=== PATIENT | female | born 1960 | race Caucasian/White ===

== ENCOUNTER 2020-04-25 07:16 | Observation (INO) | payer OTHER ==
[2020-04-25] MEDS ORDERED: ASPIRIN 81 MG PO STA (07:44)
[2020-04-25] MEDS ORDERED: NITROGLYCERIN OINT 1 INCH/GM PACKET TOPICAL STA (07:44)
[2020-04-25 07:59] LABS: Basophils # (A) 0.1 k/uL (0-0.2); Basophils % (A) 0 %; Eosinophils # (A) 0.2 k/uL (0-0.7); Eosinophils % (A) 1 %; HCT 51.2 % (34.0-46.0); Lymphocytes # (A) 2.6 k/uL (1.0-4.8); Lymphocytes % (A) 17 %; MCH 28.6 pg (25.0-35.0); MCHC 31.3 g/dL (31.0-37.0); MCV 91.4 fL (80.0-100.0); Mean Platelet Volume 7.9; Monocytes # (A) 0.8 k/uL (0-1.0); Monocytes % (A) 5 %; Neutrophils # (A) 11.5 k/uL (1.3-7.7); Neutrophils % (A) 75 %; Platelet Count 420 k/uL (150-450); RDW 12.9 % (11.5-15.5); WBC 15.2 k/uL (3.8-10.6)
--- NOTE | 2020-04-25 08:02 | ED ---
General Adult HPI - General Chief complaint: Chest Pain Stated complaint: chest pain Time Seen by Provider: 04/25/20 07:25 Source: patient, RN notes reviewed, old records reviewed Mode of arrival: ambulatory Limitations: no limitations - History of Present Illness Initial comments: This is a 59-year-old female presents emergency Department complaining of chest pain. Patient states the chest pain started at 2:00 in the morning. Patient states it radiates to her back. Patient states she's had intermittent shortness of breath associated with it. Patient denies any diaphoretic episodes. Patient states she is nauseated. Patient states she's had similar symptoms over the last 2 years on and off but never been worked up for. Patient states she does have high cholesterol but refuses to take her medication. Patient states she smokes. Patient states she has family history of heart disease. Patient denies any fever chills or cough per patient denies any lightheadedness or dizziness. Patient denies abdominal pain patient denies vomiting or diarrhea. Patient denies any Tenderness or leg swelling - Related Data Allergies Allergy/AdvReac Type Severity Reaction Status Date / Time No Known Allergies Allergy Verified 04/25/20 07:25 Review of Systems ROS Statement: Those systems with pertinent positive or pertinent negative responses have been documented in the HPI. ROS Other: All systems not noted in ROS Statement are negative. Past Medical History Past Medical History: Hypertension History of Any Multi-Drug Resistant Organisms: None Reported Past Surgical History: Breast Surgery, Tonsillectomy Additional Past Surgical History / Comment(s): R breast Past Psychological History: No Psychological Hx Reported Smoking Status: Current every day smoker Past Alcohol Use History: None Reported Past Drug Use History: None Reported General Exam - General Exam Comments Initial Comments: GENERAL: Patient is well-developed and well-nourished. Patient is nontoxic and well- hydrated and is in mild distress. ENT: Neck is soft and supple. No significant lymphadenopathy is noted. Oropharynx is clear. Moist mucous membranes. Neck has full range of motion without eliciting any pain. EYES: The sclera were anicteric and conjunctiva were pink and moist. Extraocular movements were intact and pupils were equal round and reactive to light. Eyelids were unremarkable. PULMONARY: Unlabored respirations. Good breath sounds bilaterally. No audible rales rhonchi or wheezing was noted. CARDIOVASCULAR: There is a regular rate and rhythm without any murmurs gallops or rubs. ABDOMEN: Soft and nontender with normal bowel sounds. SKIN: Skin is clear with no lesions or rashes and otherwise unremarkable. NEUROLOGIC: Patient is alert and oriented x3. Cranial nerves II through XII are grossly intact. Motor and sensory are also intact. Normal speech, volume and content. Symmetrical smile. MUSCULOSKELETAL: Normal extremities with adequate strength and full range of motion. LYMPHATICS: No significant lymphadenopathy is noted PSYCHIATRIC: Normal psychiatric evaluation. Limitations: no limitations Course Vital Signs 04/25/20 07:25 Temperature 98 F Pulse Rate 69 Respiratory 18 Rate Blood Pressure 158/90 O2 Sat by Pulse 97 Oximetry Medical Decision Making - Medical Decision Making Patient stated that the Nitropaste seem to reduced her pain but it is not completely gone. Patient received Zofran for the nausea. Chest x-ray shows no acute abnormality. I spoke with Dr. Mendoza agreed to admit the patient admitted the patient wrote admitting orders. - Lab Data Result diagrams: 04/25/20 07:51 04/25/20 07:51 Lab Results 04/25/20 04/25/20 04/25/20 Range/Units 07:51 07:51 07:51 WBC 15.2 H (3.8-10.6) k/uL RBC 5.60 H (3.80-5.40) m/uL Hgb 16.0 (11.4-16.0) gm/dL Hct 51.2 H (34.0-46.0) % MCV 91.4 (80.0-100.0) fL MCH 28.6 (25.0-35.0) pg MCHC 31.3 (31.0-37.0) g/dL RDW 12.9 (11.5-15.5) % Plt Count 420 (150-450) k/uL Neutrophils % 75 % Lymphocytes % 17 % Monocytes % 5 % Eosinophils % 1 % Basophils % 0 % Neutrophils # 11.5 H (1.3-7.7) k/uL Lymphocytes # 2.6 (1.0-4.8) k/uL Monocytes # 0.8 (0-1.0) k/uL Eosinophils # 0.2 (0-0.7) k/uL Basophils # 0.1 (0-0.2) k/uL PT 9.3 (9.0-12.0) sec INR 0.9 (<1.2) APTT 23.2 (22.0-30.0) sec Sodium 136 L (137-145) mmol/L Potassium 4.9 (3.5-5.1) mmol/L Chloride 103 (98-107) mmol/L Carbon Dioxide 29 (22-30) mmol/L Anion Gap 4 mmol/L BUN 19 H (7-17) mg/dL Creatinine 0.76 (0.52-1.04) mg/dL Est GFR (CKD-EPI)AfAm >90 (>60 ml/min/1.73 sqM) Est GFR (CKD-EPI)NonAf 88 (>60 ml/min/1.73 sqM) Glucose 128 H (74-99) mg/dL Calcium 10.1 (8.4-10.2) mg/dL Magnesium 2.3 (1.6-2.3) mg/dL Total Bilirubin 0.6 (0.2-1.3) mg/dL AST 20 (14-36) U/L ALT 18 (4-34) U/L Alkaline Phosphatase 110 (38-126) U/L Troponin I (0.000-0.034) ng/mL Total Protein 7.1 (6.3-8.2) g/dL Albumin 4.0 (3.5-5.0) g/dL 04/25/20 Range/Units 07:51 WBC (3.8-10.6) k/uL RBC (3.80-5.40) m/uL Hgb (11.4-16.0) gm/dL Hct (34.0-46.0) % MCV (80.0-100.0) fL MCH (25.0-35.0) pg MCHC (31.0-37.0) g/dL RDW (11.5-15.5) % Plt Count (150-450) k/uL Neutrophils % % Lymphocytes % % Monocytes % % Eosinophils % % Basophils % % Neutrophils # (1.3-7.7) k/uL Lymphocytes # (1.0-4.8) k/uL Monocytes # (0-1.0) k/uL Eosinophils # (0-0.7) k/uL Basophils # (0-0.2) k/uL PT (9.0-12.0) sec INR (<1.2) APTT (22.0-30.0) sec Sodium (137-145) mmol/L Potassium (3.5-5.1) mmol/L Chloride (98-107) mmol/L Carbon Dioxide (22-30) mmol/L Anion Gap mmol/L BUN (7-17) mg/dL Creatinine (0.52-1.04) mg/dL Est GFR (CKD-EPI)AfAm (>60 ml/min/1.73 sqM) Est GFR (CKD-EPI)NonAf (>60 ml/min/1.73 sqM) Glucose (74-99) mg/dL Calcium (8.4-10.2) mg/dL Magnesium (1.6-2.3) mg/dL Total Bilirubin (0.2-1.3) mg/dL AST (14-36) U/L ALT (4-34) U/L Alkaline Phosphatase (38-126) U/L Troponin I <0.012 (0.000-0.034) ng/mL Total Protein (6.3-8.2) g/dL Albumin (3.5-5.0) g/dL Critical Care Time Critical Care Time: Yes Total Critical Care Time: 35 Disposition Clinical Impression: Unstable angina pectoris Dis[facility] Referrals: Jaya Crocker MD [Primary Care Provider] - 1-2 days Time of Disposition: 08:44
[2020-04-25 08:07] LABS: ALT 18 U/L (4-34); AST 20 U/L (14-36); African American GFR (CKD) >90 (>60 ml/min/1.73 sqM); Alkaline Phosphatase 110 U/L (38-126); Anion Gap 4 mmol/L; Blood Urea Nitrogen 19 mg/dL (7-17); Calcium 10.1 mg/dL (8.4-10.2); Carbon Dioxide 29 mmol/L (22-30); Chloride 103 mmol/L (98-107); Glucose 128 mg/dL (74-99); Magnesium 2.3 mg/dL (1.6-2.3); Non-African American GFR(CKD) 88 (>60 ml/min/1.73 sqM); Potassium 4.9 mmol/L (3.5-5.1); Sodium 136 mmol/L (137-145); Total Bilirubin 0.6 mg/dL (0.2-1.3); Total Protein 7.1 g/dL (6.3-8.2)
[2020-04-25 08:09] LABS: INR 0.9 (<1.2); Partial Thromboplastin Time 23.2 sec (22.0-30.0); Prothrombin Time 9.3 sec (9.0-12.0)
--- NOTE | 2020-04-25 08:12 | XR ---
EXAMINATION TYPE: XR chest 2V DATE OF EXAM: 04/25/2020 COMPARISON: NONE HISTORY: Shortness of breath TECHNIQUE: Frontal and lateral views of the chest are obtained. FINDINGS: Scattered senescent parenchymal changes noted. Hyperinflation compatible with COPD. No evidence for infiltrate. No evidence for atelectasis. Heart size is stable. Mediastinal structures are stable and grossly unremarkable. No evidence for hilar prominence. Degenerative changes dorsal spine. IMPRESSION: 1. No evidence for acute pulmonary disease.
[2020-04-25] MEDS ORDERED: ONDANSETRON 4 MG/2 ML VIAL IVP STA (08:34)
[2020-04-25] MEDS ORDERED: HEPARIN SODIUM,PORCINE 5,000 UNIT/ML 1 ML VIAL IV ONE (08:44)
[2020-04-25] MEDS ORDERED: NITROGLYCERIN SL TABS 0.4 MG TAB SUBLINGUAL PRN (08:44)
[2020-04-25] MEDS ORDERED: HEPARIN SOD,PORK IN 0.45% NACL 25,000 UNIT in 0.45% NACL 1 250ML.BAG IV SCH ×2 (08:45→15:00)
[2020-04-25] MEDS: SODIUM CHLORIDE 0.9% 1,000 ML IV SCH (09:39)
[2020-04-25] MEDS ORDERED: NICOTINE 21MG/24HR PATCH TRANSDERM STA (09:50)
[2020-04-25] MEDS ORDERED: PANTOPRAZOLE 40 MG TABLET PO PRN (10:27)
[2020-04-25] MEDS ORDERED: NITROGLYCERIN OINT 1 INCH/GM PACKET TOPICAL SCH (12:00)
--- NOTE | 2020-04-25 13:57 | P.CRDCN ---
History of Present Illness Consult date: 04/25/20 History of present illness: CHIEF COMPLAINT: Chest pain HISTORY OF PRESENT ILLNESS: This is a 59-year old female with a past medical history significant for hyperlipidemia and nicotine dependence. Patient does not follow with a production control expert. We have been asked to see the patient in consultation for chest pain. Patient examined at the bedside in the emergency room. Patient reports she has been having chest pain intermittently for the last 2 years. She states when she gets chest pain she usually burps or throws up and then the pain goes away. She states she was awoken at 2 AM with chest pain in the sternal region. She describes the pain as a burning sensation. She does report a history of severe GERD and usually takes Prilosec twice a day. She states she has been out of this medication for approximately 2 weeks. She reports having [place]GD greater than 5 [place] and states "They told me my throat was burning". Patient reports smoking 1-1/2 packs of cigarettes per day. She has a history of high cholesterol but states she does not take cholesterol medication because it makes her sick. DIAGNOSTICS: EKG reveals sinus rhythm with no evidence of acute ischemia. Chest xray negative for an acute pulmonary process. Laboratory data: WBC 15.2. Hemoglobin 16.0. Platelet count 420. Sodium 136. Potassium 4.9. BUN 19. Creatinine 0.76. Magnesium 2.3. Troponin negative 2 Current home cardiac medications include none REVIEW OF SYSTEMS: At the time of my exam: CONSTITUTIONAL: Denies fever or chills. HEENT: Denies blurred vision, vision changes, or eye pain. Denies hemoptysis CARDIOVASCULAR: Denies chest pain, orthopnea, PND or palpitations RESPIRATORY: No shortness of breath. GASTROINTESTINAL: Denies abdominal pain. Denies nausea or vomiting. HEMATOLOGIC: Denies bleeding disorders. GENITOURINARY: Denies any blood in urine. SKIN: Denies pruitis. Denies rash. PHYSICAL EXAM: VITAL SIGNS: Reviewed. GENERAL: Well-developed in no acute distress. HEENT: Head is normocephalic. Pupils are equal, round. Sclerae anicteric. Mucous membranes of the mouth are moist. Neck supple. No JVD or thyromegaly LUNGS: Respirations even and unlabored. Lungs essentially clear to auscultation bilaterally. HEART: Regular rate and rhythm. S1 and S2 heard. ABDOMEN: Soft. Nondistended. Nontender. EXTREMITIES: Normal range of motion. No clubbing or cyanosis. Peripheral pulses intact. No lower extremity edema NEUROLOGIC: Awake and alert. Oriented x 3. ASSESSMENT: Chest pain, atypical GERD Hypertension Hyperlipidemia, refuses to take statin therapy Nicotine dependence PLAN: Continue IV heparin Obtain 2-D echo to assess cardiac structure and function Resume PPI Patient may benefit from GI/surgery consult outpatient due to her GERD. Recommend ruling out gallbladder disease as well. Patient has been started on lisinopril/hctz per medicine We will re-evaluate patient in the morning Nurse practitioner note has been reviewed by physician. Signing provider agrees with the documented findings, assessment, and plan of care. Past Medical History Past Medical History: Hypertension History of Any Multi-Drug Resistant Organisms: None Reported Past Surgical History: Breast Surgery, Tonsillectomy Additional Past Surgical History / Comment(s): R breast Past Psychological History: No Psychological Hx Reported Smoking Status: Current every day smoker Past Alcohol Use History: None Reported Past Drug Use History: None Reported Medications and Allergies Home Medications Medication Instructions Recorded Confirmed Type Omeprazole Magnesium [PriLOSEC OTC] 20 mg PO BID PRN 04/25/20 04/25/20 History Allergies Allergy/AdvReac Type Severity Reaction Status Date / Time codeine AdvReac Nausea & Verified 04/25/20 08:59 Vomiting Physical Exam Vitals: Vital Signs Temp Pulse Resp BP Pulse Ox 04/25/20 12:00 101 H 20 148/95 20 L 04/25/20 10:54 72 16 147/89 95 04/25/20 08:44 66 16 165/97 97 04/25/20 07:25 98 F 69 18 158/90 97 Intake and Output 04/24/20 04/25/20 04/25/20 22:59 06:59 14:59 Other: Weight 108.862 kg Results 04/25/20 07:51 04/25/20 07:51 Cardiac Enzymes 04/25/20 04/25/20 04/25/20 Range/Units 07:51 07:51 10:43 AST 20 (14-36) U/L Troponin I <0.012 <0.012 (0.000-0.034) ng/mL Coagulation 04/25/20 Range/Units 07:51 PT 9.3 (9.0-12.0) sec APTT 23.2 (22.0-30.0) sec CBC 04/25/20 Range/Units 07:51 WBC 15.2 H (3.8-10.6) k/uL RBC 5.60 H (3.80-5.40) m/uL Hgb 16.0 (11.4-16.0) gm/dL Hct 51.2 H (34.0-46.0) % Plt Count 420 (150-450) k/uL Comprehensive Metabolic Panel 04/25/20 Range/Units 07:51 Sodium 136 L (137-145) mmol/L Potassium 4.9 (3.5-5.1) mmol/L Chloride 103 (98-107) mmol/L Carbon Dioxide 29 (22-30) mmol/L BUN 19 H (7-17) mg/dL Creatinine 0.76 (0.52-1.04) mg/dL Glucose 128 H (74-99) mg/dL Calcium 10.1 (8.4-10.2) mg/dL AST 20 (14-36) U/L ALT 18 (4-34) U/L Alkaline Phosphatase 110 (38-126) U/L Total Protein 7.1 (6.3-8.2) g/dL Albumin 4.0 (3.5-5.0) g/dL Current Medications Generic Name Dose Route Start Last Admin Trade Name Freq PRN Reason Stop Dose Admin Albuterol/Ipratropium 3 ml 04/25/20 13:33 Ipratropium-Albuterol 3 Ml Neb INHALATION RT-QID [facility] Aspirin 325 mg 04/26/20 09:00 Aspirin 325 Mg Tab PO DAILY [facility] Lisinopril/HCTZ 1 each 04/25/20 13:45 Lisinopril-Hctz 10-12.5 Mg 1 Each Tab PO BID [facility] Heparin Sodium/Sodium Chloride 250 mls @ 10 mls/hr 04/25/20 08:45 04/25/20 09:10 25,000 unit/ Sodium Chloride IV 9.186 units/kg/hr .Q24H PRIYA 10 mls/hr Administration Protocol 9.186 UNITS/KG/HR Sodium Chloride 1,000 mls @ 20 mls/hr 04/25/20 09:45 04/25/20 09:39 Saline 0.9% IV 20 mls/hr .Q24H PRIYA Administration Nitroglycerin 0.4 mg 04/25/20 08:44 Nitroglycerin Sl Tabs 0.4 Mg Tab SUBLINGUAL Q5M PRN Chest Pain Nitroglycerin 1 inch 04/25/20 12:00 Nitroglycerin Oint 1 Inch/Gm Packet TOPICAL Q6HR PRIYA Pantoprazole Sodium 40 mg 04/25/20 10:27 Pantoprazole 40 Mg Tablet PO AC-BRKFST PRN Heartburn Intake and Output 04/24/20 04/25/20 04/25/20 22:59 06:59 14:59 Other: Weight 108.862 kg Patient Weight 04/26/20 06:59 Weight 108.862 kg 04/25/20 07:51 04/25/20 07:51
[2020-04-25] MEDS: IPRATROPIUM-ALBUTEROL 3 ML NEB INHALATION SCH ×3 (14:59→19:51)
--- NOTE | 2020-04-25 15:42 | ECHOF ---
Referral Reason:chest pain MEASUREMENTS -------- HEIGHT: 162.6 cm WEIGHT: 108.9 kg BP: 148/95 RVIDd: 3.1 cm (< 3.3) IVSd: 1.1 cm (0.6 - 1.1) LVIDd: 3.9 cm (3.9 - 5.3) LVPWd: 1.3 cm (0.6 - 1.1) IVSs: 1.7 cm LVIDs: 3.3 cm LVPWs: 1.4 cm LA Diam: 3.3 cm (2.7 - 3.8) Ao Diam: 3.0 cm (2.0 - 3.7) AV Cusp: 2.0 cm (1.5 - 2.6) MV EXCURSION: 11.800 mm (> 18.000) MV EF SLOPE: 30 mm/s (70 - 150) EPSS: 0.8 cm MV E Mac: 0.79 m/s MV DecT: 185 ms MV A Mac: 0.80 m/s MV E/A Ratio: 0.99 FINDINGS -------- Sinus rhythm. This was a technically adequate study. The left ventricular size is normal. There is mild concentric left ventricular hypertrophy. Overa ll left ventricular systolic function is normal with, an EF between 60 - 65 %. The right ventricle is normal in size. The left atrial size is normal. The right atrium is normal in size. Interatrial and interventricular septum intact. The aortic valve is trileaflet and appears structurally normal. The mitral valve is normal. The tricuspid valve appears structurally normal. The pulmonic valve was not well visualized. The aortic root size is normal. Normal inferior vena cava with normal inspiratory collapse consistent with estimated right atrial pre ssure of 5 mmHg. There is no pericardial effusion. CONCLUSIONS -------- 1. The left ventricular size is normal. 2. There is mild concentric left ventricular hypertrophy. 3. Overall left ventricular systolic function is normal with, an EF between 60 - 65 %. 4. There is no pericardial effusion. Pericardial fat pad noted CAREER TECHNOLOGY TEACHER: Carole Hodges, [facility]
[2020-04-25] MEDS: LISINOPRIL-HCTZ 10-12.5 MG 1 EACH TAB PO SCH ×2 (16:15→20:28)
[2020-04-25] MEDS: ACETAMINOPHEN TAB 325 MG TAB PO PRN (16:37)
[2020-04-25] MEDS ORDERED: CALCIUM CARBONATE 500 MG CHEWABLE PO PRN (17:03)
[2020-04-25] MEDS ORDERED: MELATONIN 3 MG TABLET PO PRN (17:03)
[2020-04-25] MEDS ORDERED: MAGNESIUM HYDROXIDE 2,400 MG/10 ML CUP PO PRN (17:03)
[2020-04-25] MEDS ORDERED: LACTULOSE 20 GM/30 ML CUP PO PRN (17:03)
--- NOTE | 2020-04-25 19:20 | P.HPIM ---
History of Present Illness H&P Date: 04/25/20 Chief Complaint: Chest pressure History of presenting complaint: This is a 59-year-old patient of Dr. LEWIS. Patient's been having chest pain on and off for a few days. Now presents with more pronounced symptoms. Had lower sternal pain that felt like a rock pressure IV and also heaviness in the shoulders. Doesn't often on the more pronounced. Some shortness of breath. No perspiration. Patient is being feeling overtly tired. Patient always had a cough and all diseases in the morning. Is a smoker. No prior coronary artery disease. Admitted with unstable angina no fever no chills Review of systems: GEN.: Tired EYES: None HEENT: None NECK: None RESPIRATORY: As above CARDIOVASCULAR: As above GASTROINTESTINAL: None GENITOURINARY: None MUSCULOSKELETAL: None LYMPHATICS: None HEMATOLOGICAL: None PSYCHIATRY: Some anxiety NEUROLOGICAL: None Past medical history: None Social history: This is the father. Works at that [employer]. Smokes a pack and a half a close to 46 years. No alcohol. Family history: Reviewed, noncontributory to presentation Physical examination: VITAL SIGNS: 98, 69, 18, 158/90, 97% on room air GENERAL: BMI 41.2, laying in bed, tired. EYES: Pupils equal. Conjunctiva normal. HEENT: External appearance of nose and ears normal, oral cavity grossly normal. NECK: JVD not raised; masses not palpable. HEART: First and second heart sounds are normal; no edema. LUNGS:[ Respiratory rate increased, decreased breath sound. ABDOMEN: Soft, nontender, liver spleen not palpable, no masses palpable. PSYCH: Alert and oriented x3; mood and affect normal. NEUROLOGICAL: Cranial nerves grossly intact; no facial asymmetry, power and sensation grossly intact. LYMPHATICS: No lymph nodes palpable in the axilla and neck INVESTIGATIONS, reviewed in the clinical context: White count 15.2 hemoglobin 16 platelets 420 potassium 3.9 creatinine 0.76 Troponin I 3 negative EKG tracing personally reviewed by me-normal sinus rhythm Chest x-ray film personally reviewed by me-no infiltrates 2-D echocardiogram-EF 60-65%, mild concentric LVH, no wall motion abnormality Assessment: -Patient been having central chest pain on and off a few days. More pronounced now. Coronary risk factors include smoking, obesity, postmenopausal. Diagnosed with unstable angina. 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 Aspirin. IV heparin. Zestoretic for blood pressure, cardiology consulted. Care was discussed with the patient. Past Medical History Past Medical History: Hypertension History of Any Multi-Drug Resistant Organisms: None Reported Past Surgical History: Breast Surgery, Tonsillectomy Additional Past Surgical History / Comment(s): R breast Past Psychological History: No Psychological Hx Reported Smoking Status: Current every day smoker Past Alcohol Use History: None Reported Past Drug Use History: None Reported Medications and Allergies Home Medications Medication Instructions Recorded Confirmed Type Omeprazole Magnesium [PriLOSEC OTC] 20 mg PO BID PRN 04/25/20 04/25/20 History Allergies Allergy/AdvReac Type Severity Reaction Status Date / Time codeine AdvReac Nausea & Verified 04/25/20 08:59 Vomiting Physical Exam Vitals: Vital Signs Temp Pulse Resp BP Pulse Ox 04/25/20 08:44 66 16 165/97 97 04/25/20 07:25 98 F 69 18 158/90 97 Intake and Output 04/24/20 04/25/20 04/25/20 22:59 06:59 14:59 Other: Weight 108.862 kg Results CBC & Chem 7: 04/25/20 07:51 04/25/20 07:51 Labs: Abnormal Lab Results - Last 24 Hours (Table) 04/25/20 04/25/20 Range/Units 07:51 07:51 WBC 15.2 H (3.8-10.6) k/uL RBC 5.60 H (3.80-5.40) m/uL Hct 51.2 H (34.0-46.0) % Neutrophils # 11.5 H (1.3-7.7) k/uL Sodium 136 L (137-145) mmol/L BUN 19 H (7-17) mg/dL Glucose 128 H (74-99) mg/dL
[2020-04-25] MEDS: FAMOTIDINE 20 MG TAB PO SCH (20:28)
[2020-04-25] MEDS ORDERED: HEPARIN SODIUM,PORCINE 5,000 UNIT/ML 1 ML VIAL IV PRN (21:34)
[2020-04-26] MEDS: ACETAMINOPHEN TAB 325 MG TAB PO PRN (03:27)
[2020-04-26 04:18] LABS: Cholesterol 291 mg/dL (<200); HDL Cholesterol 57 mg/dL (40-60); LDL Cholesterol,Calculated 204 mg/dL (0-99); Triglycerides 151 mg/dL (<150)
[2020-04-26] MEDS: IPRATROPIUM-ALBUTEROL 3 ML NEB INHALATION SCH ×2 (07:53→11:41)
[2020-04-26 08:15] VITALS: BP 98/62; PULSE 109; RESP 16; TEMP 98
[2020-04-26] MEDS ORDERED: ASPIRIN 81 MG PO SCH (09:00)
[2020-04-26] MEDS ORDERED: ASPIRIN 325 MG TAB PO SCH (09:00)
--- NOTE | 2020-04-26 10:57 | P.PN ---
Subjective Progress Note Date: 04/26/20 The pleasant 59-year-old female patient with history of hyperlipidemia and nicotine dependence, smokes about 1-1/2 packs per day and has no plans to quit. Does not follow regularly with the chargeback analyst. Has a history of GERD that was diagnosed by a scope done several years ago. Presented with chest pain in the sternal region that she described as a burning sensation that woke her up at night. Apparently she'd been out of her Prilosec for 2 weeks. She underwent echocardiogram yesterday which showed normal LV systolic function with ejection fraction between 60-65%, no segmental wall motion abnormalities and no significant valvular abnormalities. Overall this morning she is feeling quite a bit better. She was initiated on Zestoretic yesterday which was ordered twice a day. Blood pressure this morning is 90 systolic. Objective - Vital Signs Vital signs: Vital Signs Temp 98.0 F 04/26/20 08:14 Pulse 109 H 04/26/20 08:14 Resp 16 04/26/20 09:29 BP 98/62 04/26/20 08:14 Pulse Ox 94 L 04/26/20 08:14 Intake & Output 04/25/20 04/26/20 04/26/20 18:59 06:59 18:59 Intake Total 30 145.722 Balance 30 145.722 Weight 108.862 kg Intake: Intake, IV Titration 30 145.722 Amount Heparin Sod,Pork in 0.45% 10 145.722 NaCl 25,000 unit In 0.45 % NaCl 1 250ml.bag @ 9.1 UNITS/KG/HR 9.906 mls/hr IV .Q24H PRIYA Rx#: [id number] Sodium Chloride 0.9% 1, 20 000 ml @ 20 mls/hr IV . Q24H PRIYA Rx#:[id number] Oral 0 Other: Voiding Method Toilet Toilet # Voids 1 2 - Exam PHYSICAL EXAMINATION: HEENT: Head is atraumatic, normocephalic. Pupils equal, round. Neck is supple. There is no elevated jugular venous pressure. HEART EXAMINATION: Heart sounds regular, S1 and S2 normal. No murmur or gallop heard. CHEST EXAMINATION: Lungs are clear to auscultation. No chest wall tenderness is noted on palpation or with deep breathing. ABDOMEN: Soft, nontender. Bowel sounds are heard. No organomegaly noted. EXTREMITIES: 2+ peripheral pulses with no evidence of peripheral edema and no calf tenderness noted. NEUROLOGIC patient is awake, alert and oriented x3. . - Labs CBC & Chem 7: 04/25/20 07:51 04/25/20 07:51 Labs: Abnormal Lab Results - Last 24 Hours (Table) 04/25/20 04/25/20 04/26/20 Range/Units 14:21 20:37 03:10 APTT 40.0 H 36.1 H (22.0-30.0) sec Triglycerides 151 H (<150) mg/dL Cholesterol 291 H (<200) mg/dL LDL Cholesterol, Calc 204 H (0-99) mg/dL 04/26/20 Range/Units 03:10 APTT 52.9 H (22.0-30.0) sec Triglycerides (<150) mg/dL Cholesterol (<200) mg/dL LDL Cholesterol, Calc (0-99) mg/dL Assessment and Plan Assessment: 1 chest pain, atypical, likely GI in nature #2 GERD #3 hypertension, with hypotension on current therapy #4 hyperlipidemia, refuses statin therapy #5 nicotine dependence, verbalizes that she will not quit. Plan: From chargeback analyst perspective we will decrease Zestoretic to once a day. We believe the patient would benefit from a GI consult as an outpatient for further workup for GERD and rule out gallbladder disease. From our standpoint she is stable for discharge home today. Will follow-up with the patient as an outpatient. ENVIRONMENTAL SERVICES SPECIALIST note has been reviewed, I agree with a documented findings and plan of care. Patient was seen and examined.
[2020-04-26] MEDS: FAMOTIDINE 20 MG TAB PO SCH (11:52)
[2020-04-26] MEDS: SODIUM CHLORIDE 0.9% 1,000 ML IV SCH (11:53)
--- NOTE | 2020-04-26 19:46 | P.DS ---
Providers Date of admission: 04/25/20 08:44 Expected date of discharge: 04/26/20 Attending physician: Bruno Mendoza Consults: 04/25/20 08:44 Consult Physician Urgent Consulting Provider: [facility] Consult Reason/Comments: Unstable angina Do you want consulting provider notified?: Yes [facility]: Chief Complaint: Chest pressure History of presenting complaint: This is a 59-year-old patient of Dr. CROCKER. Patient's been having chest pain on and off for a few days. Now presents with more pronounced symptoms. Had lower sternal pain that felt like a rock pressure IV and also heaviness in the shoulders. Doesn't often on the more pronounced. Some shortness of breath. No perspiration. Patient is being feeling overtly tired. Patient always had a cough and some wheezing in the morning. smoker. No prior coronary artery disease. Admitted with unstable angina no fever no chills Admitted with possible unstable angina, uncontrolled blood pressure, COPD. Troponins were negative. Today: Did not show any wall motion abnormality. Zestoretic was added for blood pressure. Today-no further symptoms. Seen by cardiology. Okay to be discharged. Discussed with the patient. Cardiology will follow outpatient. Discussion and discharge planning more than 35 minutes Consultation: Dr. Herring from cardiology Physical examination: Vitals-98, 109, 16, 98/62, 94% room air GENERAL: Sitting up, comfortable EYES: Pupils equal. Conjunctiva normal. HEENT: External appearance of nose and ears normal, oral cavity grossly normal. NECK: JVD not raised; masses not palpable. HEART: First and second heart sounds are normal; no edema. LUNGS:[ Respiratory rate normal, decreased breath sound. ABDOMEN: Soft, nontender, liver spleen not palpable, no masses palpable. PSYCH: Alert and oriented x3; mood and affect normal. INVESTIGATIONS, reviewed in the clinical context: LDL 204 White count 15.2 hemoglobin 16 platelets 420 potassium 3.9 creatinine 0.76 Troponin I 3 negative EKG tracing personally reviewed by me-normal sinus rhythm Chest x-ray film personally reviewed by me-no infiltrates 2-D echocardiogram-EF 60-65%, mild concentric LVH, no wall motion abnormality Assessment: -Anterior chest wall pain. 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 Nicotine patch is being given. More than 3 minutes was spent for this Patient Condition at Discharge: Good Plan - Discharge Summary Discharge Rx Participant: Yes New Discharge Prescriptions: New Aspirin 81 mg PO DAILY chew Nicotine 14Mg/24Hr Patch [Habitrol] 1 patch TRANSDERM DAILY #14 patch Atorvastatin [Lipitor] 40 mg PO HS #30 tab Nitroglycerin Sl Tabs [Nitrostat] 0.4 mg SUBLINGUAL Q5M PRN #25 tab PRN Reason: Chest Pain Lisinopril-Hctz 10-12.5 mg [Zestoretic 10-12.5] 1 each PO DAILY #60 tab Continue Omeprazole Magnesium [PriLOSEC OTC] 20 mg PO BID PRN PRN Reason: Heartburn Discharge Medication List Omeprazole Magnesium [PriLOSEC OTC] 20 mg PO BID PRN 04/25/20 [History] Aspirin 81 mg PO DAILY chew 04/26/20 [Rx] Atorvastatin [Lipitor] 40 mg PO HS #30 tab 04/26/20 [Rx] Lisinopril-Hctz 10-12.5 mg [Zestoretic 10-12.5] 1 each PO DAILY #60 tab 04/26/20 [Rx] Nicotine 14Mg/24Hr Patch [Habitrol] 1 patch TRANSDERM DAILY #14 patch 04/26/20 [Rx] Nitroglycerin Sl Tabs [Nitrostat] 0.4 mg SUBLINGUAL Q5M PRN #25 tab 04/26/20 [Rx] Follow up Appointment(s)/Referral(s): Jaya Crocker MD [Primary Care Provider] - 1-2 days Madelyn Craig MD [STAFF PHYSICIAN] - 2 Weeks Vern Craig MD [STAFF PHYSICIAN] - 1 Week Patient Instructions/Handouts: How to Stop Smoking (DC) Discharge Disposition: HOME SELF-CARE
[2020-04-26] MEDS ORDERED: ATORVASTATIN 40 MG TAB PO SCH (21:00)
[2020-04-27] MEDS ORDERED: LISINOPRIL-HCTZ 10-12.5 MG 1 EACH TAB PO SCH (09:00)
== END 2020-04-26 11:59 | disposition home or self-care (01) ==
LOC: EC 07:16 → 3NCARDOBS 08:44
PROVIDERS: ADMIT Hospitalist; ATTEND Hospitalist
DX: R07.89 Other chest pain (principal); I10 Essential (primary) hypertension; J44.9 Chronic obstructive pulmonary disease, unspecified; R11.0 Nausea; E78.00 Pure hypercholesterolemia, unspecified; E66.9 Obesity, unspecified; Z68.41 Body mass index [BMI] 40.0-44.9, adult; E78.5 Hyperlipidemia, unspecified; K21.9 Gastro-esophageal reflux disease without esophagitis; I95.9 Hypotension, unspecified; N95.9 Unspecified menopausal and perimenopausal disorder; T47.1X6A Underdosing of other antacids and anti-gastric-secretion drugs, initial encounter; T46.6X6A Underdosing of antihyperlipidemic and antiarteriosclerotic drugs, initial encounter; Z91.128 Patient's intentional underdosing of medication regimen for other reason; F17.210 Nicotine dependence, cigarettes, uncomplicated; Z79.899 Other long term (current) drug therapy; Z88.5 Allergy status to narcotic agent; Z82.49 Family history of ischemic heart disease and other diseases of the circulatory system
CPT/HCPCS: 93005 ×2; 96366 ×3; 96376 ×2; 96365; 96375; 99291; 36415; 94760; 93306; 80061; 80053; 83735; 84484; 85025; 85610; 85730 ×2; 71046; G0378 ×2; S4990; J1644 ×2; J2405

== ENCOUNTER 2020-06-24 17:12 | Emergency (ER) | payer OTHER ==
[2020-06-24 17:28] VITALS: BP 129/94; PULSE 109; RESP 18; TEMP 98.3
[2020-06-24] MEDS ORDERED: HYDROmorphone 0.5 MG/0.5 ML SYRINGE IM STA (18:28)
--- NOTE | 2020-06-24 18:55 | ED ---
Fall HPI - General Chief Complaint: Fall Stated Complaint: Fall, L Side Injury Time Seen by Provider: 06/24/20 18:15 Source: patient Mode of arrival: wheelchair - History of Present Illness Initial Comments: 60-year-old female presenting today for chief complaint of fall. Patient states there is one large subcu down from her door. She states that she must have misstepped falling forward she states she almost all interfaces landed onto her left shoulder patient states she has pain in the left shoulder and the left elbow patient states she does not know any other areas of injury she denies loss of consciousness she denies any pain in the head headache visual changes nausea vomiting. Patient denies any back pain. Patient states she does have chronic left shoulder pain he gets injection she states she just had an epidural 2 days ago for chronic back pain she denies noting any increased she denies loss of bowel bladder control. She denies urinary tension she states she is able to walk without difficulty and with full strength. Patient denies additional complaints at this time she denies lacerations or abrasions upon arrival patient appears nontoxic. Patient denies any anticoagulation use. - Related Data Home Medications Medication Instructions Recorded Confirmed Lisinopril-Hctz 10-12.5 mg 1 tab PO DAILY 06/24/20 06/24/20 [Zestoretic 10-12.5] Omeprazole 20 mg PO DAILY 06/24/20 06/24/20 Previous Rx's Medication Instructions Recorded Aspirin 81 mg PO DAILY chew 04/26/20 Atorvastatin [Lipitor] 40 mg PO HS #30 tab 04/26/20 Nitroglycerin Sl Tabs [Nitrostat] 0.4 mg SUBLINGUAL Q5M PRN #25 tab 04/26/20 Allergies Allergy/AdvReac Type Severity Reaction Status Date / Time codeine AdvReac Nausea & Verified 06/24/20 19:25 Vomiting Review of Systems ROS Statement: Those systems with pertinent positive or pertinent negative responses have been documented in the HPI. ROS Other: All systems not noted in ROS Statement are negative. Past Medical History Past Medical History: Hypertension History of Any Multi-Drug Resistant Organisms: None Reported Past Surgical History: Breast Surgery, Tonsillectomy Additional Past Surgical History / Comment(s): R breast Past Psychological History: No Psychological Hx Reported Smoking Status: Current every day smoker Past Alcohol Use History: None Reported Past Drug Use History: None Reported General Exam - General Exam Comments Initial Comments: General: The patient is awake and alert Eye: +3 mm pupils are equal, round and reactive to light, extra-ocular movements are intact. No nystagmus. There is normal conjunctiva bilaterally. No signs of icterus. Ears, nose, mouth and throat: There are moist mucous membranes and no oral lesions. Neck: The neck is supple, there is no tenderness or JVD. No raccoon or Solo sign. no midlines tenderness to palpation of the cervical or acid and lumbar spine. normal inspection. Cardiovascular: There is a regular rate and rhythm. No murmur, rub or gallop is appreciated. Respiratory: Lungs are clear to auscultation, respirations are non-labored, breath sounds are equal. No wheezes, stridor, rales, or rhonchi. Gastrointestinal: Soft, non-distended, non-tender abdomen without masses or organomegaly noted. There is no rebound or guarding present. Musculoskeletal: Pt has obvious deformity of the right shoulder, no lacerations. Pt is able to make the okay fingers crossed thumbs-up oppose the small digit and thumb. no wrist drop. The patient will patient of the scapula. pain to palpation of elbow and anterior shoulder. ambulatory, no leg pain. strength and ROM intact of the LE b/l. Sensation intact of the LE b/l. Radial pulses equal bilaterally 2+. Neurological: A&O x 3. CN II-XII intact, There are no obvious motor or sensory deficits. Coordination appears grossly intact. Speech is normal. Skin: Skin is warm and dry and no rashes or lesions are noted. Scalp hematomas. Psychiatric: Cooperative, appropriate mood & affect, normal judgment. Limitations: no limitations Course Vital Signs 06/24/20 17:22 Temperature 98.3 F Pulse Rate 109 H Respiratory 18 Rate Blood Pressure 129/94 O2 Sat by Pulse 97 Oximetry Medical Decision Making - Medical Decision Making Pt presenting for cc of right shoulder pain after fall. dislocation fracture. She is neurovascularly intact. Does not endorse any other injuries aside from elbow pain. lumbar spine (-). Pt case discussed with Reggie Pierre pest control supervisor PA, recommended transfer. consulted orthopedic surgery Dr. Chisholm who recommended reduction base on facility comfort, if not comfortable recommend transfer. Pt agreeable to transfer. Dr. Tai accepted transfer. Dr. Sullivan agreeable to care Disposition Clinical Impression: Right humeral fracture, Dislocation of right shoulder joint, Fall Disposition: OTHER INSTITUTION NOT DEFINED Condition: Stable Is patient prescribed a controlled substance at d/c from ED?: No Referrals: Jaya Crocker MD [Primary Care Provider] - 1-2 days Time of Disposition: 19:51 Decision to Admit Reason: Admit from [facility] - Out of Hospital Transfer - Req. Specs Out of Hospital Transfer - Requested Specifics: Other Emergency Center
--- NOTE | 2020-06-24 19:06 | XR ---
EXAMINATION TYPE: XR shoulder complete LT DATE OF EXAM: 06/24/2020 COMPARISON: NONE HISTORY: Fall. Pain. TECHNIQUE: 3 views FINDINGS: There is comminuted and impacted fracture of the humeral neck. There is also anterior dislo cation at the glenohumeral joint. The AC joint is intact. Scapula is intact. There is very large chip fracture of the greater tuberosity of the humerus. IMPRESSION: There is comminuted anterior fracture dislocation of the humeral head.
--- NOTE | 2020-06-24 19:18 | XR ---
EXAMINATION TYPE: XR lumbar spine 2 or 3V DATE OF EXAM: 06/24/2020 COMPARISON: NONE HISTORY: Pain TECHNIQUE: 3 views FINDINGS: Lumbar vertebra have normal alignment. There is some osteopenia. Posterior elements are int act. Sacroiliac joints appear intact. There is no compression fracture. There is no significant disc space narrowing. IMPRESSION: No acute abnormality of the lumbar spine. No fracture seen.
--- NOTE | 2020-06-24 19:19 | XR ---
EXAMINATION TYPE: XR elbow limited LT DATE OF EXAM: 06/24/2020 COMPARISON: NONE HISTORY: Pain. TECHNIQUE: 3 views FINDINGS: I see no fracture nor dislocation. Joint spaces are normal. There is no sign of an elbow damion int effusion. IMPRESSION: Negative left elbow exam. No fracture seen.
[2020-06-24] MEDS ORDERED: HYDROmorphone 0.5 MG/0.5 ML SYRINGE IVP STA (19:57)
== END 2020-06-24 20:45 | disposition short-term general hospital (02) ==
LOC: EC 17:12
DX: S42.301A Unspecified fracture of shaft of humerus, right arm, initial encounter for closed fracture (principal); S42.91XA Fracture of right shoulder girdle, part unspecified, initial encounter for closed fracture; S00.03XA Contusion of scalp, initial encounter; I10 Essential (primary) hypertension; F17.200 Nicotine dependence, unspecified, uncomplicated; Z79.899 Other long term (current) drug therapy; Z88.5 Allergy status to narcotic agent; W10.9XXA Fall (on) (from) unspecified stairs and steps, initial encounter; Y92.89 Other specified places as the place of occurrence of the external cause
CPT/HCPCS: 99284; 96374; 96372; 72100; 73030; 73070; J1170